=== PATIENT | female | born 1985 | race Caucasian/White ===

== ENCOUNTER 2017-03-22 20:41 | Emergency (ER) | payer OTHER ==
[~2017-03-22] VITALS: Ht 162.6 cm; Wt 70.3 kg
--- NOTE | ~2017-03-22 | EKG ---
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
[~2017-03-22 20:41] MED LIST: FLEXERIL PO; LIORESAL 10 MG10 MG PO; PROPRANOLOL 4040 M1; PROZAC; ULTRAM 50MG TAB50 MG PO; ULTRAM50 MG PO
[2017-03-22] MEDS ORDERED: IBUPROFEN 800800 M1 PO (20:52)
[2017-03-22] MEDS ORDERED: NITROFURANTOIN100 MG PO (20:53)
[2017-03-22 21:34] LABS: ABSOLUTE NEUTROPHILS 6.2 thou/uL (1.4-8.2); BASOPHILS 0.6 % (0.0-2.0); EOSINOPHILS 3.9 % (0.0-3.0); HEMATOCRIT 34.7 % (37.0-47.0); HEMOGLOBIN 11.8 gm/dL (12.0-15.0); LYMPHOCYTES 16.5 % (24.0-44.0); MCH 29.1 pg (26.0-34.0); MCV 85.7 fL (80.0-100.0); MONOCYTES 11.9 % (1.0-8.0); PLATELET COUNT 196 thou/uL (150-400); POLYS 67.1 % (36.0-66.0); RBC 4.06 mil/uL (4.20-5.00); RDW 15.7 % (10.5-14.5); WBC 9.2 thou/uL (4.0-11.0)
[2017-03-22 21:38] LABS: CALCIUM 9.3 mg/dL (8.5-10.1); CREATININE 0.8 mg/dL (0.6-1.0); POTASSIUM 3.7 mmol/L (3.5-5.1)
[2017-03-22 21:40] LABS: MANUAL DIFF NO
[2017-03-22 21:50] LABS: URINE BILIRUBIN NEGATIVE (Negative); URINE BLOOD NEGATIVE (Negative); URINE COLOR YELLOW; URINE GLUCOSE-RANDOM* NEGATIVE (Negative); URINE KETONES NEGATIVE (Negative); URINE PROTEIN (DIPSTICK) NEGATIVE (Negative); URINE UROBILINOGEN 0.2 E.U./dl (0.2-1.0)
[2017-03-22 21:51] LABS: URINE LEUKOCYTES-REFLEX TRACE (Negative)
[2017-03-22 21:57] LABS: AMP/METHAMP Negative (Negative); BARBITURATES Negative (Negative); BENZODIAZEPINES Negative (Negative); COCAINE Negative (Negative); METHADONE Negative (Negative); OPIATES Negative (Negative); PCP Negative (Negative); THC Negative (Negative)
[2017-03-22 22:43] VITALS: BP 116/71
== END 2017-03-22 22:50 | disposition home or self-care (01) ==
LOC: ER 20:41
PROVIDERS: Emergency Medicine
DX: R51 Headache (principal); F32.9 Major depressive disorder, single episode, unspecified; F17.210 Nicotine dependence, cigarettes, uncomplicated

== ENCOUNTER 2017-11-21 14:51 | Emergency (ER) | payer OTHER ==
[~2017-11-21] VITALS: Ht 165.1 cm; Wt 76.2 kg
--- NOTE | ~2017-11-21 | EKG ---
[address] [address] ELECTROCARDIOGRAM REPORT Name: SHIRA CANO 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
[~2017-11-21 14:51] MED LIST changes: +IBUPROFEN 800800 M1 PO; +NITROFURANTOIN100 MG PO
[2017-11-21 15:16] LABS: ABSOLUTE NEUTROPHILS 6.4 thou/uL (1.4-8.2); BASOPHILS 0.7 % (0.0-2.0); EOSINOPHILS 2.8 % (0.0-3.0); HEMATOCRIT 36.8 % (37.0-47.0); HEMOGLOBIN 12.6 gm/dL (12.0-15.0); LYMPHOCYTES 18.4 % (24.0-44.0); MCH 29.5 pg (26.0-34.0); MCHC 34.1 g/dL (28.0-37.0); MCV 86.3 fL (80.0-100.0); MONOCYTES 6.6 % (1.0-8.0); PLATELET COUNT 236 thou/uL (150-400); POLYS 71.5 % (36.0-66.0); RBC 4.26 mil/uL (4.20-5.00); RDW 14.3 % (10.5-14.5); WBC 8.9 thou/uL (4.0-11.0)
[2017-11-21 15:28] LABS: ANION GAP 14 mmol/L (7-16); BUN 22 mg/dL (7-18); CALCIUM 10.5 mg/dL (8.5-10.1); CHLORIDE 102 mmol/L (98-107); CO2 22 mmol/L (21-32); GLUCOSE 119 mg/dL (74-106); POTASSIUM 3.9 mmol/L (3.5-5.1); SODIUM 138 mmol/L (136-145)
[2017-11-21 15:36] LABS: ALBUMIN 4.3 g/dL (3.4-5.0); SGOT 44 U/L (15-37); SGPT 71 U/L (30-65); TOTAL BILIRUBIN 0.3 mg/dL (<0.1-1.0); TOTAL PROTEIN 8.6 g/dL (6.4-8.2); TROPONIN-I < 0.04 ng/mL (<0.06)
[2017-11-21 17:00] VITALS: BP 94/50
== END 2017-11-21 17:00 | disposition home or self-care (01) ==
LOC: ER 14:51
PROVIDERS: Emergency Medicine
DX: R51 Headache (principal); F32.9 Major depressive disorder, single episode, unspecified; F17.210 Nicotine dependence, cigarettes, uncomplicated

== ENCOUNTER 2018-05-06 18:51 | Emergency (ER) | payer OTHER ==
[~2018-05-06] VITALS: Ht 162.6 cm; Wt 61.2 kg
[~2018-05-06 18:51] MED LIST changes: +FLAGYL500 MG PO
== END 2018-05-06 21:51 | disposition home or self-care (01) ==
LOC: ER 18:51
DX: R51 Headache (principal); F17.210 Nicotine dependence, cigarettes, uncomplicated; F32.9 Major depressive disorder, single episode, unspecified

== ENCOUNTER 2018-09-17 20:52 | Emergency (ER) | payer OTHER ==
[~2018-09-17] VITALS: Ht 162.6 cm; Wt 54.4 kg
[2018-09-17 21:14] LABS: URINE BILIRUBIN NEGATIVE (Negative); URINE BLOOD NEGATIVE (Negative); URINE CLARITY CLEAR; URINE COLOR YELLOW; URINE GLUCOSE-RANDOM* NEGATIVE (Negative); URINE KETONES NEGATIVE (Negative); URINE LEUKOCYTES NEGATIVE (Negative); URINE NITRITE NEGATIVE (Negative); URINE PROTEIN (DIPSTICK) NEGATIVE (Negative); URINE SPECIFIC GRAVITY >= 1.030 (1.005-1.035); URINE UROBILINOGEN 0.2 E.U./dl (0.2-1.0)
[2018-09-17 23:12] LABS: HEMOGLOBIN 12.3 gm/dL (12.0-15.0); MCHC 34.1 g/dL (28.0-37.0); MCV 85.1 fL (80.0-100.0); RBC 4.23 mil/uL (4.20-5.00); WBC 8.6 thou/uL (4.0-11.0)
[2018-09-17 23:29] LABS: CALCIUM 8.9 mg/dL (8.5-10.1); CREATININE 0.9 mg/dL (0.6-1.0); POTASSIUM 3.2 mmol/L (3.5-5.1)
[2018-09-17 23:31] LABS: AMP/METHAMP Negative (Negative); BARBITURATES Negative (Negative); BENZODIAZEPINES Negative (Negative); COCAINE Negative (Negative); METHADONE Negative (Negative); OPIATES Negative (Negative); PCP Negative (Negative)
[2018-09-18] MEDS ORDERED: ATIVAN0.5 M1 PO (00:13)
[2018-09-18 01:01] VITALS: BP 125/68
--- NOTE | 2018-09-18 09:10 | EKG ---
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[facility] : 1985 Requested By: Jessika Shah Order Number: [id number] MD: Aldo Claros Measurements Intervals [place] Rate: 73 P: 13 CT: 180 QRS: 36 QRSD: 82 T: 60 QT: 405 QTc: 447 Interpretive Statements Sinus rhythm No significant abnormality Compared to ECG 11/21/2017 15:13:31 No significant change was found Electronically Signed On 09-18-2018 9:10:48 CDT by Aldo Claros [email or web address] ��������������������������������������������� <ELECTRONICALLY SIGNED> ���������������������������������������� By: Aldo Claros MD, [facility] ��������������������������������������������� 09/18/18 0910 2313 2313 Aldo Claros MD, FACC /EPI
== END 2018-09-18 00:30 | disposition home or self-care (01) ==
LOC: ER 20:52
PROVIDERS: Emergency Medicine; Student in an Organized Health Care Education/Training Program
DX: F41.0 Panic disorder [episodic paroxysmal anxiety] (principal); E87.6 Hypokalemia; R06.00 Dyspnea, unspecified; G43.909 Migraine, unspecified, not intractable, without status migrainosus; F32.9 Major depressive disorder, single episode, unspecified; F17.210 Nicotine dependence, cigarettes, uncomplicated

== ENCOUNTER 2019-04-27 19:43 | Emergency (ER) | payer OTHER ==
[~2019-04-27] VITALS: Ht 162.6 cm; Wt 68.0 kg
[~2019-04-27 19:43] MED LIST changes: +ATIVAN0.5 M1 PO
[2019-04-27 20:10] LABS: URINE BILIRUBIN NEGATIVE (Negative); URINE BLOOD NEGATIVE (Negative); URINE COLOR YELLOW; URINE GLUCOSE-RANDOM* NEGATIVE (Negative); URINE KETONES NEGATIVE (Negative); URINE LEUKOCYTES-REFLEX NEGATIVE (Negative); URINE PROTEIN (DIPSTICK) NEGATIVE (Negative); URINE SPECIFIC GRAVITY 1.015 (1.005-1.035); URINE UROBILINOGEN 0.2 E.U./dl (0.2-1.0)
[2019-04-27 20:14] LABS: URINE CLARITY SL HAZY; URINE NITRITE-REFLEX POSITIVE (Negative)
[2019-04-27 20:18] LABS: BACTERIA-REFLEX >30 Many /HPF (None Seen); CASTS None Seen /LPF (None Seen); CRYSTALS None Seen /LPF (None Seen); SQUAMOUS 0-3 Few /LPF (0-3); URINE RBC None Seen /HPF (0-2); URINE WBC-REFLEX 6-15 Few /HPF (0-5)
[2019-04-27] MEDS ORDERED: KEFLEX500 M1 PO (20:49)
[2019-04-27 20:57] LABS: HEMOGLOBIN 11.9 gm/dL (12.0-15.0); MCH 28.8 pg (26.0-34.0); MCHC 33.9 g/dL (28.0-37.0); MCV 84.8 fL (80.0-100.0); RBC 4.13 mil/uL (4.20-5.00); RDW 14.3 % (10.5-14.5); WBC 8.5 thou/uL (4.0-11.0)
[2019-04-27 21:05] LABS: CALCIUM 9.6 mg/dL (8.5-10.1)
[2019-04-27 21:19] VITALS: BP 126/79
== END 2019-04-27 21:20 | disposition home or self-care (01) ==
LOC: ER 19:43
PROVIDERS: Physician Assistant
DX: N39.0 Urinary tract infection, site not specified (principal); F15.10 Other stimulant abuse, uncomplicated; Z90.49 Acquired absence of other specified parts of digestive tract; F32.9 Major depressive disorder, single episode, unspecified; G43.909 Migraine, unspecified, not intractable, without status migrainosus; F17.210 Nicotine dependence, cigarettes, uncomplicated

== ENCOUNTER 2019-06-13 20:31 | Emergency (ER) | payer OTHER ==
[~2019-06-13] VITALS: Ht 162.6 cm; Wt 68.0 kg
[2019-06-13 20:31] VITALS: BP 115/63
[~2019-06-13 20:31] MED LIST changes: +KEFLEX500 M1 PO
== END 2019-06-13 21:24 | disposition home or self-care (01) ==
LOC: ER 20:31
DX: R05 Cough (principal); F17.210 Nicotine dependence, cigarettes, uncomplicated; G43.909 Migraine, unspecified, not intractable, without status migrainosus; F32.9 Major depressive disorder, single episode, unspecified

== ENCOUNTER 2019-08-09 18:26 | Emergency (ER) | payer OTHER ==
[~2019-08-09] VITALS: Ht 162.6 cm; Wt 63.5 kg
--- NOTE | ~2019-08-09 | EKG ---
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
[2019-08-09 20:00] LABS: ABSOLUTE NEUTROPHILS 4.5 thou/uL (1.4-8.2); BASOPHILS 0.6 % (0.0-2.0); EOSINOPHILS 3.6 % (0.0-3.0); HEMATOCRIT 32.8 % (37.0-47.0); HEMOGLOBIN 10.9 gm/dL (12.0-15.0); LYMPHOCYTES 24.2 % (24.0-44.0); MCH 28.4 pg (26.0-34.0); MCHC 33.2 g/dL (28.0-37.0); MCV 85.7 fL (80.0-100.0); MONOCYTES 10.1 % (1.0-8.0); PLATELET COUNT 239 thou/uL (150-400); POLYS 61.5 % (36.0-66.0); RBC 3.83 mil/uL (4.20-5.00); RDW 14.6 % (10.5-14.5); WBC 7.2 thou/uL (4.0-11.0)
[2019-08-09 20:03] LABS: ANION GAP 8 mmol/L (7-16); BUN 17 mg/dL (7-18); CALCIUM 8.6 mg/dL (8.5-10.1); CHLORIDE 104 mmol/L (98-107); CO2 27 mmol/L (21-32); GLUCOSE 83 mg/dL (74-106); POTASSIUM 3.6 mmol/L (3.5-5.1); SODIUM 139 mmol/L (136-145)
[2019-08-09 20:13] LABS: ALBUMIN 3.9 g/dL (3.4-5.0); SGOT 21 U/L (15-37); SGPT 26 U/L (30-65); TOTAL BILIRUBIN 0.2 mg/dL (<0.1-1.0); TOTAL PROTEIN 8.2 g/dL (6.4-8.2); TROPONIN-I <0.06 ng/mL (<0.06)
[2019-08-09] MEDS ORDERED: NOHOMEMEDICATIONS (20:29)
[2019-08-09] MEDS ORDERED: ULTRAM 50MG TAB50 MG PO (20:31)
[2019-08-09] MEDS ORDERED: LIDOCAINE PAIN1 EACH TRANSDERM (20:33)
[2019-08-09 21:03] VITALS: BP 108/71
== END 2019-08-09 21:05 | disposition home or self-care (01) ==
LOC: ER 18:26
PROVIDERS: Physician Assistant
DX: R07.89 Other chest pain (principal); G43.909 Migraine, unspecified, not intractable, without status migrainosus; F32.9 Major depressive disorder, single episode, unspecified; F17.210 Nicotine dependence, cigarettes, uncomplicated

== ENCOUNTER 2019-12-03 17:42 | Emergency (ER) | payer OTHER ==
[~2019-12-03] VITALS: Ht 162.6 cm; Wt 70.3 kg
[~2019-12-03 17:42] MED LIST changes: +LIDOCAINE PAIN1 EACH TRANSDERM; +NOHOMEMEDICATIONS
[2019-12-03 18:23] LABS: HEMOGLOBIN 11.5 gm/dL (12.0-15.0); MCH 28.8 pg (26.0-34.0); MCHC 33.9 g/dL (28.0-37.0); MCV 84.9 fL (80.0-100.0); PLATELET COUNT 277 thou/uL (150-400); RDW 15.5 % (10.5-14.5)
[2019-12-03 18:33] LABS: ANION GAP 13 mmol/L (7-16); BUN 11 mg/dL (7-18); CALCIUM 8.5 mg/dL (8.5-10.1); CHLORIDE 101 mmol/L (98-107); CO2 20 mmol/L (21-32); GLUCOSE 89 mg/dL (74-106); POTASSIUM 3.7 mmol/L (3.5-5.1); SODIUM 134 mmol/L (136-145)
[2019-12-03 18:35] LABS: URINE BILIRUBIN NEGATIVE (Negative); URINE BLOOD NEGATIVE (Negative); URINE CLARITY CLEAR; URINE COLOR YELLOW; URINE GLUCOSE-RANDOM* NEGATIVE (Negative); URINE KETONES NEGATIVE (Negative); URINE LEUKOCYTES-REFLEX NEGATIVE (Negative); URINE NITRITE-REFLEX NEGATIVE (Negative); URINE PROTEIN (DIPSTICK) NEGATIVE (Negative); URINE UROBILINOGEN 0.2 E.U./dl (0.2-1.0)
[2019-12-03 18:40] LABS: ANISOCYTOSIS SLIGHT; PLATELET ESTIMATE NORMAL
[2019-12-03 18:44] LABS: ALBUMIN 3.8 g/dL (3.4-5.0); LIPASE 96 U/L (73-393); SGOT 28 U/L (15-37); SGPT 52 U/L (30-65); TOTAL BILIRUBIN 0.3 mg/dL (0.2-1.0); TOTAL PROTEIN 8.2 g/dL (6.4-8.2); TROPONIN-I <0.06 ng/mL (<0.06)
[2019-12-03] MEDS ORDERED: OMEPRAZOLE 20 M20 M1 PO (19:46)
[2019-12-03] MEDS ORDERED: AMOXICILLIN875 MG PO (19:46)
[2019-12-03 20:20] VITALS: BP 131/92
--- NOTE | 2019-12-04 08:23 | EKG ---
[facility] [place] [address] ELECTROCARDIOGRAM REPORT Name: SHIRA CANO Room #: [facility]#: [id number] Admission: 12/03/19 Attend Phys: Discharge: 12/03/19 Date of : 83 Report #: [id number] THIS REPORT FOR: cc: MARJAN - Evelin family physician/PCP MARJAN - No family physician/PCP Aldo Claros MD [facility] THIS REPORT FOR: //name// [facility] ED Test Date: 2019-12-03 Test Time: 18:15:04 Pat Name: SHIRA CANO Department: Room: Gender: F Entry Writer: SHYAM IVONNEDOUG : 1985 Requested By: Fanny Castellano Order Number: [id number] MD: Aldo Claros Measurements Intervals [place] Rate: 64 P: 2 [place]: 185 QRS: 30 QRSD: 78 T: 53 QT: 404 QTc: 417 Interpretive Statements Sinus rhythm Poor R wave progression Compared to ECG 08/09/2019 18:31:14 No significant changes Electronically Signed On 12-04-2019 8:21:04 CDT by Aldo Claros [email or web address] <ELECTRONICALLY SIGNED> By: Aldo Claros MD, FACC 12/04/19 0821 1815 1815 Aldo Claros MD, [facility] /EPI
== END 2019-12-03 20:22 | disposition home or self-care (01) ==
LOC: ER 17:42
PROVIDERS: Student in an Organized Health Care Education/Training Program
DX: J40 Bronchitis, not specified as acute or chronic (principal); K29.70 Gastritis, unspecified, without bleeding; R11.2 Nausea with vomiting, unspecified; G43.909 Migraine, unspecified, not intractable, without status migrainosus; F17.210 Nicotine dependence, cigarettes, uncomplicated; Z20.828 Contact with and (suspected) exposure to other viral communicable diseases; Z90.49 Acquired absence of other specified parts of digestive tract

== ENCOUNTER 2019-12-17 15:38 | Emergency (ER) | payer OTHER ==
[~2019-12-17] VITALS: Ht 162.6 cm; Wt 70.3 kg
[~2019-12-17 15:38] MED LIST changes: +AMOXICILLIN875 MG PO; +OMEPRAZOLE 20 M20 M1 PO
[2019-12-17 16:28] LABS: ABSOLUTE NEUTROPHILS 7.9 thou/uL (1.4-8.2); BASOPHILS 0.4 % (0.0-2.0); EOSINOPHILS 2.3 % (0.0-3.0); HEMATOCRIT 36.4 % (37.0-47.0); HEMOGLOBIN 12.1 gm/dL (12.0-15.0); LYMPHOCYTES 12.5 % (24.0-44.0); MCH 28.5 pg (26.0-34.0); MCHC 33.4 g/dL (28.0-37.0); MCV 85.5 fL (80.0-100.0); MONOCYTES 9.1 % (1.0-8.0); PLATELET COUNT 287 thou/uL (150-400); POLYS 75.7 % (36.0-66.0); RBC 4.25 mil/uL (4.20-5.00); RDW 15.3 % (10.5-14.5); WBC 10.4 thou/uL (4.0-11.0)
[2019-12-17 16:31] LABS: CALCIUM 9.4 mg/dL (8.5-10.1); POTASSIUM 3.5 mmol/L (3.5-5.1)
--- NOTE | 2019-12-17 16:39 | EKG ---
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
[2019-12-17] MEDS ORDERED: AUGMENTIN 875-1 EACH PO (19:49)
[2019-12-17 19:57] VITALS: BP 118/78
== END 2019-12-17 20:00 | disposition home or self-care (01) ==
LOC: ER 15:38
PROVIDERS: Emergency Medicine
DX: L03.211 Cellulitis of face (principal); K02.9 Dental caries, unspecified; K03.81 Cracked tooth; F32.9 Major depressive disorder, single episode, unspecified; G43.909 Migraine, unspecified, not intractable, without status migrainosus; F17.210 Nicotine dependence, cigarettes, uncomplicated; Z90.49 Acquired absence of other specified parts of digestive tract

== ENCOUNTER 2020-10-13 02:06 | Emergency (ER) | payer OTHER ==
[~2020-10-13] VITALS: Ht 162.6 cm; Wt 59.0 kg
[~2020-10-13 02:06] MED LIST changes: +AUGMENTIN 875-1 EACH PO
[2020-10-13 03:29] LABS: HEMATOCRIT 33.7 % (37.0-47.0); HEMOGLOBIN 10.9 gm/dL (12.0-15.0); MCH 26.8 pg (26.0-34.0); MCHC 32.3 g/dL (28.0-37.0); RBC 4.06 mil/uL (4.20-5.00); WBC 11.1 thou/uL (4.0-11.0)
[2020-10-13 03:33] LABS: CALCIUM 8.4 mg/dL (8.5-10.1)
[2020-10-13 03:39] LABS: ALBUMIN 3.6 g/dL (3.4-5.0); TOTAL BILIRUBIN 0.2 mg/dL (0.2-1.0); TOTAL PROTEIN 7.8 g/dL (6.4-8.2)
[2020-10-13] MEDS ORDERED: PREDNISONE 10 M10 M1 PO (05:33)
[2020-10-13] MEDS ORDERED: VENTOLIN HFA INH8 GM INH (05:33)
[2020-10-13 05:34] VITALS: BP 107/66
== END 2020-10-13 05:41 | disposition home or self-care (01) ==
LOC: ER 02:06
PROVIDERS: Emergency Medicine
DX: J20.9 Acute bronchitis, unspecified (principal); E87.6 Hypokalemia; G43.909 Migraine, unspecified, not intractable, without status migrainosus; F17.210 Nicotine dependence, cigarettes, uncomplicated; Z79.899 Other long term (current) drug therapy; Z20.822 Contact with and (suspected) exposure to COVID-19